=== PATIENT | male | born 1950 | race Caucasian/White ===

== ENCOUNTER 2017-03-21 16:05 | Emergency (ER) | payer BC | END 2017-03-21 18:18 | disposition home or self-care (01) | LOC: ER1 16:05 | DX: L05.91 Pilonidal cyst without abscess (principal); I10 Essential (primary) hypertension; E11.9 Type 2 diabetes mellitus without complications | CPT/HCPCS: 10061; 87070; 87205; 99283 ==

== ENCOUNTER 2017-03-23 08:28 | Emergency (ER) | payer BC | END 2017-03-23 09:23 | disposition home or self-care (01) | LOC: ER1 08:28 | DX: L02.212 Cutaneous abscess of back [any part, except buttock and flank] (principal); Z87.891 Personal history of nicotine dependence; Z79.84 Long term (current) use of oral hypoglycemic drugs; Z79.899 Other long term (current) drug therapy | CPT/HCPCS: 99282 ==